=== PATIENT | female | born 1945 | race Caucasian/White ===

== ENCOUNTER 2019-04-14 15:14 | Emergency (ER) | payer MEDICARE, BC ==
[2019-04-14 15:54] VITALS: BP 140/70
--- NOTE | 2019-04-14 15:59 | UC ---
Skin Complaint HPI - HPI Summary HPI Summary: 73-year-old female who looks younger than her stated age had back surgery done mid February and she thinks that the incision has opened however she states she thinks it's been open for probably a couple of weeks. She denies any fever or chills. She denies any real pain to the area but states she notices it more. - History of Current Complaint Chief Complaint: [facility] Time Seen by Provider: 04/14/19 15:50 Stated Complaint: SURGICAL INCISION OPENED Hx Obtained From: Patient ?: No Onset/Duration: Gradual Onset Skin Exposure Onset/Duration: Days Ago Timing: Constant Onset Severity: Mild Current Severity: Mild Pain Intensity: 0 Location: Other - Lower back Character: Pain - Patient has minimal pain to the area but she states when her clothing touch is that she does notice it. Aggravating Factor(s): Clothing Alleviating Factor(s): Nothing Associated Signs & Symptoms: Positive: Drainage - She has not noticed any active drainage however she states a neighbor took picture of it and she thought there was pus in the incision. - Allergy/Home Medications Allergies/Adverse Reactions: Allergies Allergy/AdvReac Type Severity Reaction Status Date / Time No Known Allergies Allergy Verified 04/14/19 15:45 Home Medications: Home Medications Atenolol TAB* [Tenormin TAB* 50 MG] 100 mg PO DAILY 04/14/19 [History Confirmed 04/14/19] Atorvastatin* [Lipitor 40 MG*] 40 mg PO DAILY 04/14/19 [History Confirmed ] Losartan TAB* [Cozaar TAB*] 50 mg PO DAILY 04/14/19 [History Confirmed 04/14/19] Mirabegron [Myrbetriq] 50 mg PO DAILY 04/14/19 [History Confirmed 04/14/19] buPROPion TAB* [Wellbutrin TAB*] 75 mg PO BID 04/14/19 [History Confirmed ] PMH/Surg Hx/FS Hx/Imm Hx Previously Healthy: Yes - Surgical History Surgical History: Yes Surgery Procedure, Year, and Place: back - Family History Known Family History: Positive: Non-Contributory - Social History Occupation: Retired Alcohol Use: Occasionally Substance Use Type: None Smoking Status (MU): Current Some Day Smoker Review of Systems All Other Systems Reviewed And Are Negative: Yes Skin: Positive: Other - Patient has not noted any active drainage from the incision but a friend took a picture of it and she noted pus in the incision. Is Patient Immunocompromised?: No Physical Exam Triage Information Reviewed: Yes Appearance: Well-Appearing, No Pain Distress, Well-Nourished Vital Signs: Initial Vital Signs Temp 98.4 F 04/14/19 15:37 Pulse 84 04/14/19 15:37 Resp 12 04/14/19 15:37 BP 140/70 04/14/19 15:37 Pulse Ox 96 04/14/19 15:37 Vital Signs Reviewed: Yes Musculoskeletal Exam: Normal Neurological Exam: Normal Psychological Exam: Normal Skin: Positive: Other - Patient has an approximately 10 cm incision lower back vertical. The superior portion appears to be healing the inferior portion is slightly open with some yellow pus present but no active drainage. There is no visible redness to the area but it does feel mildly warm on palpation. I did apply some firm pressure around the incision and no active drainage was noted. In the incision itself there is some yellowish drainage. She has minimal tenderness on palpation. Course/Dx - Course Course Of Treatment: The patient is comfortable here I don't feel this is a recent dehiscence of the wound but she has probably had it for a number of days. I am going to start her on cephalexin because he area feels warm however I'm not able to actively express pus. She is to call her surgeon tomorrow and make an appointment to be rechecked on Thursday. She can keep it covered to avoid her clothing from rubbing against it and irritating it more. I advised her she starts running a fever, chills worsening symptoms increased drainage she is to go to the emergency room. - Diagnoses Provider Diagnosis: Dehiscence of surgical wound Discharge - Sign-Out/Discharge Documenting (check all that apply): Patient Departure All imaging exams completed and their final reports reviewed: No Studies - Discharge Plan Condition: Fair Disposition: HOME Prescriptions: Cephalexin CAP* [Keflex 500 CAP*] 500 mg PO TID 10 Days #30 cap Patient Education Materials: Surgical Site Infections (ED) Referrals: No Primary Care Phys,NOPCP [Primary Care Provider] - Additional Instructions: Call the surgeon who did the surgery tomorrow and make an appointment to be rechecked on Thursday. If you develop fever, chills, worsening symptoms then go to the emergency room for further treatment. You may want to cover the area with a bandage so your clothing does not rub against it. - Billing Disposition and Condition Condition: FAIR Disposition: Home - Attestation Statements Provider Attestation: Per institutional requirements, I have reviewed the chart, however, I was not consulted specifically or made aware of this patient by the midlevel provider. I did not personally evaluate, interact with , or disposition this patient.
== END 2019-04-14 16:16 | disposition home or self-care (01) ==
LOC: UCEAST 15:14
DX: T81.31XA Disruption of external operation (surgical) wound, not elsewhere classified, initial encounter (principal); F17.200 Nicotine dependence, unspecified, uncomplicated
CPT/HCPCS: 99202; G0463